=== PATIENT | male | born 1965 | race Caucasian/White ===

== ENCOUNTER 2017-10-30 03:22 | Emergency (ER) | payer MEDICARE ==
[2017-10-30] MEDS ORDERED: Morphine 4 MG/ML Carpuject ONE (03:42)
[2017-10-30] MEDS ORDERED: Bacitracin Zinc 1 Packet ONE (03:44)
== END 2017-10-30 04:08 | disposition home or self-care (01) ==
LOC: ERS 03:22
DX: S30.822A Blister (nonthermal) of penis, initial encounter (principal); X58.XXXA Exposure to other specified factors, initial encounter
CPT/HCPCS: 96372; J2270

== ENCOUNTER 2017-11-20 18:30 | Emergency (ER) | payer MEDICARE ==
[~2017-11-20 18:30] MED LIST: ISOVUE-370 76%-LOCM 1 ML ONE; Iopamidol 370 76% 50 ML VIAL FS ONE
[2017-11-20] MEDS ORDERED: Ondansetron HCl/PF 4 MG/2 ML Vial ONE ×2 (19:19→21:16)
[2017-11-20 19:38] LABS: ALT (SGPT) 13 U/L (8-55); AST (SGOT) 17 U/L (5-34); Albumin 3.7 g/dL (3.5-5.0); Alkaline Phosphatase 77 U/L (40-150); Anion Gap 14 mmol/L (10-20); BUN (Urea Nitrogen) 10 mg/dL (8.4-25.7); Bilirubin, Total 0.3 mg/dL (0.2-1.2); Calc. Creatinine Clearance 0 mL/min (70-130); Calcium 9.1 mg/dL (7.8-10.44); Carbon Dioxide 25 mmol/L (22-29); Chloride 102 mmol/L (98-107); Estimated GFR-MDRD Greater than 90; Globulin 3.4 g/dL (2.4-3.5); Glucose 85 mg/dL (70-105); Protein, Total 7.1 g/dL (6.0-8.3); Sodium 137 mmol/L (136-145)
--- NOTE | 2017-11-20 21:34 | CT ---
CT OF THE ABDOMEN AND PELVIS WITH CONTRAST 11/20/17 COMPARISON: None. HISTORY: Right lower quadrant abdominal pain. Patient fell and injured his penis two weeks ago but still has p ain in that region. Patient is partially paralyzed. TECHNIQUE: Multiple contiguous axial images were obtained in a CT of the abdomen and pelvis with contrast. Coron al reformats were performed. FINDINGS: There is scoliotic curvature of the spine. The bones of the pelvis are misshapen which is likely nabil enital. There are densities within the gallbladder which may represent gallstones. The liver, kidneys, adrena l glands, spleen, pancreas are unremarkable. No free air, free fluid, or stranding changes are seen i n the abdomen or pelvis. The patient has a suprapubic catheter. There are scattered diverticula in the colon. The small bowel is unremarkable. The appendix is normal. No abdominal or pelvic lymphadenopathy are seen. There appear to be hypertrophic changes overlying terrell th great trochanters of the proximal femurs. There is a small left hip effusion. IMPRESSION: 1. No evidence of acute intra-abdominal/pelvic abnormality. 2. Likely cholelithiasis. 3. Diverticulosis. POS: [facility]
[2017-11-20] MEDS ORDERED: Methocarbamol 500 MG TAB PO SCH (21:45)
[2017-11-20 21:56] LABS: Bilirubin Negative (Negative); Blood, Urine Negative (Negative); Clarity CLEAR (Clear); Glucose, Urine (Dipstick) Negative (Negative); Leukocyte Small (Negative); Nitrite Positive (Negative); Protein, Urine (Dipstick) Negative (Neg-Trace)
[2017-11-20 21:58] LABS: Specific Gravity, Urine Greater than 1.060 (1.002-1.036)
[2017-11-20 21:59] LABS: Pathc Cast-AUWi Flag 1.72 (0-2.49)
[2017-11-20] MEDS ORDERED: Ketorolac Tromethamine 30 MG/ML VIAL ONE (22:05)
[2017-11-20 22:07] LABS: Bacteria/HPF None Seen HPF (None Seen); Hyaline Casts/LPF 0-3 HYALINE CAST LPF (0-3 Hyaline); RBC/HPF 0-3 HPF (0-3); Squamous Epithelial 0-3 HPF (0-3); Yeast-All Forms None Seen HPF (None Seen)
[2017-11-20] MEDS ORDERED: Ciprofloxacin 500 MG TAB ONE (22:39)
== END 2017-11-20 22:47 | disposition home or self-care (01) ==
LOC: ERS 18:30
DX: N39.0 Urinary tract infection, site not specified (principal)
CPT/HCPCS: 74177; 80053; 81003; 81015; 87077; 87086; 87186; 96374; 96375; 96376; J1170; J1885; J2405